=== PATIENT | male | born 1990 | race Caucasian/White ===

== ENCOUNTER 2018-09-06 02:06 | Emergency (ER) | payer SELFPAY ==
[~2018-09-06] VITALS: Ht 170.2 cm; Wt 73.0 kg
[2018-09-06 02:40] LABS: MICROSCOPIC AUTO
[2018-09-06 02:42] LABS: CULTURE INDICATED? NO
--- NOTE | 2018-09-06 03:50 | NUR ---
PT PRESENTED WITH C/O PAIN BETWEEN SHOULDERS AND HIS NECK FROM SLEEPING WEIRD, ALSO NOTES THAT HIS GROIN/TESTICLE IS SWOLLEN. PROVIDED PT WITH GOWN, FAMILY AT BEDSIDE, CALL LIGHT WITHIN REACH, AWAITING ERP FOR EVAL AND ORDERS
[2018-09-06] MEDS ORDERED: KETOROLAC 30 MG/1 ML ONE (04:17)
[2018-09-06] MEDS ORDERED: KETOROLAC 30 MG/1 ML IM ONE (04:30)
--- NOTE | 2018-09-06 04:41 | NUR ---
PT MEDICATED PER MAR. PT TO CT
[2018-09-06] MEDS ORDERED: DIPHENHYDRAMINE 25 MG CAPSULE ONE (05:16)
[2018-09-06] MEDS ORDERED: HYDROcodone/APAP 5/325 TABLET ONE (05:17)
[2018-09-06] MEDS ORDERED: HYDROcodone/APAP 5/325 TABLET PO ONE (05:30)
[2018-09-06] MEDS ORDERED: DIPHENHYDRAMINE 25 MG CAPSULE PO ONE (05:30)
[2018-09-06 05:32] VITALS: BP 108/69
--- NOTE | 2018-09-06 05:32 | NUR ---
pt sitting up on gurney playing on cell phone, family at bedside, monitors in place, call light within reach. awaiting ct result
== END 2018-09-06 05:58 | disposition home or self-care (01) ==
LOC: ED 05:23
DX: N50.811 Right testicular pain (principal); R10.2 Pelvic and perineal pain; R31.29 Other microscopic hematuria; F17.200 Nicotine dependence, unspecified, uncomplicated; Z88.5 Allergy status to narcotic agent
CPT/HCPCS: 74176; 76870; 81001; 96372; 99284; J1885; Q0163